=== PATIENT | male | born 1995 | race Two or more races ===

== ENCOUNTER 2019-09-06 19:29 | Emergency (ER) | payer BC, OTHER ==
[~2019-09-06] VITALS: Ht 170.2 cm; Wt 59.0 kg
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
--- NOTE | 2019-09-06 19:39 | NUR ---
REPORT GIVEN TO BERNARDINO MONTES FOR CONTINUITY OF CARE.
--- NOTE | 2019-09-06 19:47 | NUR ---
[facility] CALLED AND WAS ON HOLD FOR APPROXIMATELY 5-6MIN. WILL CALL BACK.
[2019-09-06] MEDS ORDERED: RALTEGRAVIR POTASSIUM 400 MG TABLET PO ONE (20:30)
[2019-09-06] MEDS ORDERED: EMTRICITABINE/TENOFOVIR 1 TAB PO SCH (20:30)
[2019-09-06 20:32] VITALS: BP 165/98
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
[2019-09-06] MEDS ORDERED: EMTRICITABINE 200 MG CAPSULE PO ONE (21:00)
[2019-09-06] MEDS ORDERED: TENOFOVIR DISOPROXIL FUMARATE 300 MG TABLET PO ONE (21:00)
== END 2019-09-06 23:12 | disposition home or self-care (01) ==
LOC: ER 19:30
DX: T74.21XA Adult sexual abuse, confirmed, initial encounter (principal); J45.909 Unspecified asthma, uncomplicated; Z60.2 Problems related to living alone